=== PATIENT | male | born 1960 | race African-American/Black ===

== ENCOUNTER 2021-05-07 11:09 | Emergency (ER) | payer OTHER, SELFPAY ==
--- NOTE | ~2021-05-07 | XR_ITS ---
XR chest 2V 05/07/2021 11:53 Indication: Shortness of breath Procedure: 2 view chest Comparison: No prior studies for comparison. Findings: There are infiltrates of the mid and lower lungs, consistent with pneumonia. No pleural eff usion or pneumothorax. Heart size normal. Impression: 1: Infiltrates of the mid and lower lungs bilaterally, consistent with pneumonia. Reviewed, dictated and finalized at location A. [employer] Impression: 1: Infiltrates of the mid and lower lungs bilaterally, consistent with pneumoni a.
[2021-05-07 11:22] VITALS: BP 117/78; PULSE 96; RESP 14; O2SAT 98
--- NOTE | 2021-05-07 11:26 | ED.GENADULT ---
HPI - General Adult General Chief complaint: Upper Respiratory Infection Stated complaint: espinal/diarrhea/chills/fever Time Seen by Provider: 05/07/21 11:27 Source: patient Mode of arrival: ambulatory Limitations: no limitations History of Present Illness HPI narrative: 60-year-old male patient presents to the [facility] with complaints of fever, congestion, shortness of breath and COVID-like symptoms x7days. Patient states he has had 1 dose of the COVID-vaccine. Patient states he has not yet been tested for COVID. Patient states he has been taking [id number] cold medications for symptoms but feels like his symptoms are getting worse. Denies any medical history except for a bilateral hip replacement. Related Data Allergies Allergy/AdvReac Type Severity Reaction Status Date / Time Sulfa (Sulfonamide Allergy Swelling Verified 05/07/21 11:35 Antibiotics) of Lip/Tongue/Throat Review of Systems Review of Systems: CONSTITUTIONAL: Positive fever, chills, and night sweats. EYES: Denies visual changes, redness, or discharge. ENT: Positive rhinorrhea, congestion, denies sore throat, denies otalgia. CARDIOVASCULAR: Denies chest pain, palpitations, or edema. RESPIRATORY: Positive cough and dyspnea. GASTROINTESTINAL: Denies abdominal pain, nausea, vomiting, or diarrhea. GENITOURINARY: Denies dysuria or hematuria. SKIN: Denies rash or itching. MUSCULOSKELETAL: Denies back pain, joint pain, or myalgia. NEUROLOGIC: Positive headache, denies numbness, or weakness. PSYCHIATRIC: Denies anxiety or depression. [facility] Past Medical History Medical History (Updated 05/07/21 @ 12:06 by MICHAEL Alexis) FH: bilateral hip replacements Comments At the time of my signature I agree with nursing past medical history, surgical, social, and family history. There is no relevant family history pertinent to the presenting complaint. Exam Narrative: GENERAL: ill-appearing, well-nourished, and in no acute distress. HEAD: Normocephalic, atraumatic. EYES: PERRLA and EOMI. ENT: Nares with erythema and edema noted bilaterally, no rhinorrhea or epistaxis. Mucous membranes moist. Posterior pharynx with no erythema, tonsillar lodgment, exudates or lesions present. NECK: Supple. No lymphadenopathy CHEST: Decreased lung sounds noted to bilateral lower lobes. No respiratory distress. Patient able to talk in clear complete sentences. HEART: Regular rate and rhythm. No murmur heard. Normal peripheral pulses. ABDOMEN: Soft, nontender, nondistended, normal active bowel sounds. EXTREMITIES: Normal range of motion. No edema. SKIN: Warm, dry, no rash. NEURO: No focal deficits. Alert and oriented x3. Course Course Level of Care: Express Care Visit Reevaluation(s) Reevaluation #1: Reevaluated patient and notified him that he is positive today for COVID and his x-ray does show bilateral infiltrates most likely due to the COVID virus most likely COVID-pneumonia. Discussed with patient that since this is viral we cannot treat with antibiotics. Discussed with patient we will go ahead and discharge him home with some oral steroids as well as an inhaler to help with any shortness of breath and coughing. Discussed with patient treatment options such as the monoclonal antibodies. Discussed with him that he needs to contact his primary doctor as soon as possible to see if he is a candidate for that. Obviously discussed with patient that if he has worsening symptoms such as worsening chest pain shortness of breath that he would be to go to the ER for further evaluation. Date: 05/07/21 Time: 12:08 Vital Signs Vital signs: Vital Signs Pulse Rate 96 05/07/21 11:22 Respiratory Rate 14 05/07/21 11:22 Blood Pressure 117/78 05/07/21 11:22 Pulse Oximetry 98 05/07/21 11:22 Pulse Rate 96 05/07/21 11:22 Respiratory Rate 14 05/07/21 11:22 Blood Pressure 117/78 05/07/21 11:22 Pulse Oximetry 98 05/07/21 11:22 Vital signs reviewed Medical D
== END 2021-05-07 12:11 | disposition home or self-care (01) ==
PROVIDERS: Emergency Provider Nurse Practitioner Family; PCP Nurse Practitioner Family
DX: U07.1 COVID-19 (principal); J12.82 Pneumonia due to coronavirus disease 2019; Z96.643 Presence of artificial hip joint, bilateral
CPT/HCPCS: 71046; 87426; 99213; C9803; G0463

== ENCOUNTER 2021-12-06 19:00 | Emergency (ER) | payer OTHER, SELFPAY ==
[2021-12-06 19:11] VITALS: BP 144/75; PULSE 98; RESP 18; TEMP 37.3; O2SAT 96
--- NOTE | 2021-12-06 19:43 | ED.URI ---
HPI - URI/Sore Throat General Chief Complaint: Wound/Laceration Stated Complaint: throat cough fever Time Seen by Provider: 12/06/21 19:43 Source: patient and RN notes reviewed Mode of arrival: ambulatory Limitations: no limitations History of Present Illness HPI Narrative: 61 y/o male presented for c/o fever 105 today, fatigue, sore throat. Known covid exposure stating 10 coworkers are positive. He took tylenol just [employer]. Denies cp, palpitations, sob, n/v/d. Also requesting 3 sutures removed from left ring finger that were placed 2 weeks ago when he cut finger on a glass. MD elicited complaint: cough Related Data Home Medications Medication Instructions Recorded Confirmed azathioprine 50 mg tablet 200 mg PO DAILY 12/06/21 12/06/21 Allergies Allergy/AdvReac Type Severity Reaction Status Date / Time Sulfa (Sulfonamide Allergy Swelling Verified 12/06/21 19:42 Antibiotics) of Lip/Tongue/Throat Review of Systems Review of Systems: CONSTITUTIONAL: Endorses malaise, chills, sweats, fever EYES: Denies visual changes, redness, or discharge ENT: Reports rhinorrhea, congestion,denies sinus pain, otalgia, sore throat CARDIOVASCULAR: Denies chest pain, palpitations, edema RESPIRATORY: Reports cough, post nasal drainage. Denies dyspnea GASTROINTESTINAL: Denies abdominal pain, nausea, vomiting, diarrhea SKIN: Denies rash or itching MUSCULOSKELETAL: Endorses myalgia PMFSH Past Medical History Medical History FH: bilateral hip replacements Exam Narrative: GENERAL: Ill-appearing, nontoxic EYES: conjunctivae clear ENT: Mucous membranes moist. TM pearly lees with dull light reflex bilaterally; no tragal tenderness. CHEST: Clear to auscultation, breath sounds equal. No wheezing, rhonchi, rales, or stridor. No respiratory distress, speaks in full sentences. HEART: Regular rate and rhythm. No murmur heard. SKIN: Warm, dry, no rash. Left 4th digit with [address], skin thick and growing over sutures NEURO: Alert and oriented x3. PSYCH: Normal mood and affect Course Course Emergency Course: Patient is aware of diagnosis, understands and agrees to treatment plan. Anticipatory guidance given. Patient agrees to follow-up as directed and is aware of reasons to seek care at the emergency department. Portions of this record may have been created with voice recognition software Level of Care: Express Care Visit Vital Signs Vital signs: Vital Signs Temperature 99.2 F 12/06/21 19:11 Pulse Rate 98 12/06/21 19:11 Respiratory Rate 18 12/06/21 19:11 Blood Pressure 144/75 H 12/06/21 19:11 Pulse Oximetry 96 12/06/21 19:11 Oxygen Delivery Room Air 12/06/21 19:11 Temperature 99.2 F 12/06/21 19:11 Pulse Rate 98 12/06/21 19:11 Respiratory Rate 18 12/06/21 19:11 Blood Pressure 144/75 H 12/06/21 19:11 Pulse Oximetry 96 12/06/21 19:11 Oxygen Delivery Room Air 12/06/21 19:11 reviewed Procedures Other Procedure Procedure 1: Other Procedure: sutures x2 removed left 4th digit without difficulty, no s/s infection MDM - URI/Sore Throat MDM Narrative Medical decision making narrative: COVID positive test reviewed with patient. Advised supportive measures. Only [address] on exam, removed from 4th digit, without difficulty. No additional sutures noted. Pt is in stable condition and appropriate for outpatient treatment and follow-up. Differential Diagnosis Differential diagnosis: Likely upper respiratory infection, sinusitis and viral infection Lab Data Labs: Lab Results 12/06/21 Range/Units 19:58 POC SARS CoV-2 Ag Positive (Negative) Discharge Plan Discharge Clinical Impression: COVID-19 virus infection, Encounter for removal of sutures Patient Disposition: Home, Self-Care Condition: Stable Instructions: COVID-19 (Coronavirus Disease 2019) (ED) Additional Instruc
== END 2021-12-06 20:10 | disposition home or self-care (01) ==
PROVIDERS: Emergency Provider Nurse Practitioner Family; PCP Nurse Practitioner Family
DX: U07.1 COVID-19 (principal); S61.215D Laceration without foreign body of left ring finger without damage to nail, subsequent encounter; W25.XXXD Contact with sharp glass, subsequent encounter; Z96.643 Presence of artificial hip joint, bilateral
CPT/HCPCS: 87426; 99213; C9803; G0463